=== PATIENT | male | born 1995 | race Caucasian/White ===

== ENCOUNTER 2017-12-12 15:26 | Emergency (ER) | payer BC ==
[~2017-12-12 15:26] MED LIST: OXYC-865 PO; PROM-110 PO
--- NOTE | 2017-12-12 15:29 | ER Report ---
History and Physical Time Seen By MD: 15:29 HPI/ROS CHIEF COMPLAINT: sob HISTORY OF PRESENT ILLNESS: Pt states that it is hard for him to take a deep breath "i feel like the air only goes 1/[address] way in". 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 no cough. no fever or chills. no sorethroat. no runny nose. Pt denies any hx of asthma. Pt denies being a smoker. States he at times feels like it "schwab" to take a deep breath. Came in to be checked. REVIEW OF SYSTEMS: Constitutional: No fever, no chills. Eyes: No discharge. ENT: No sore throat. Cardiovascular: No chest pain, no palpitations. Respiratory: No cough, + shortness of breath. Gastrointestinal: No abdominal pain, no vomiting. Genitourinary: No hematuria. Musculoskeletal: No back pain. Skin: No rashes. Neurological: No headache. Allergies: Coded Allergies: cephalexin (Verified Allergy, Intermediate, hives, 11/13/16) Home Meds Active Scripts Promethazine Hcl (PROMETHAZINE HCL) 25 Mg Tablet, 25 MG PO Q4H PRN for NAUSEA/VOMITING, #10 TAB Prov:IAN LIN DO 11/13/16 Oxycodone Hcl/Acetaminophen (PERCOCET 5-325 MG TABLET) 1 Each Tablet, 1 EACH PO Q4H PRN for PAIN, #10 TAB Prov:IAN LIN DO 11/13/16 Past Medical/Surgical History pmhx: denies Hx Smoking: No Hx Substance Use Disorder: No Hx Alcohol Use: Yes Constitutional Vital Sign - Last 24 Hours 12/12/17 12/12/17 12/12/17 12/12/17 15:26 15:30 15:31 15:41 Temp 98.2 Pulse ??? 80 76 Resp 18 10 B/P (MAP) 130/79 130/79 (96) Pulse Ox 100 98 O2 Delivery Room Air 12/12/17 12/12/17 12/12/17 12/12/17 15:56 16:00 16:11 16:17 Pulse 88 94 80 Resp 18 0 14 B/P (MAP) 117/88 (98) Pulse Ox 98 92 12/12/17 12/12/17 12/12/17 12/12/17 16:26 16:30 16:41 16:56 Pulse 75 78 75 Resp 10 34 13 B/P (MAP) 119/72 (88) Pulse Ox 94 99 79 12/12/17 12/12/17 17:00 17:11 Pulse 70 Resp 21 B/P (MAP) 123/71 (88) Pulse Ox 96 Physical Exam General Appearance: The patient is alert, has no immediate need for airway protection and no signs of toxicity. Eyes: Pupils equal and round no pallor or injection, EOMI ENT: no pharyngeal erythema or exudates, + large tonsils, Mucous membranes are moist, TM are nl b/l Respiratory: There are no retractions, lungs decreased more on right then left Cardiovascular: Regular rate and rhythm. pulses are equal and symmetrical Gastrointestinal: Abdomen is soft and non tender, no masses, bowel sounds normal, no guarding, no rigidity or rebound Neurological: Cranial nerves II-XII grossly intact, no sensory or motor loss Skin: Warm and dry, no rashes. Musculoskeletal: Neck is supple non tender, no vertebral tenderness Extremities are nontender, non swollen and have full range of motion, no calf swelling DIFFERENTIAL DIAGNOSIS: After history and physical exam differential diagnosis was considered for asthma, rad, ptx Medical Decision Making Data Points Result Diagram: 12/12/17 1640 12/12/17 1640 Laboratory Hematology Test 12/12/17 16:40 Red Blood Count 6.12 M/uL (4.00-5.60) Mean Corpuscular Volume 84.5 fL (80.0-96.0) Mean Corpuscular Hemoglobin 29.4 pg (26.0-33.0) Mean Corpuscular Hemoglobin Concent 34.7 g/dL (32.0-36.0) Red Cell Distribution Width 13.1 % (11.5-14.5) Mean Platelet Volume 8.6 fL (7.2-11.1) Neutrophils (%) (Auto) 63.5 % (39.4-72.5) Lymphocytes (%) (Auto) 28.5 % (17.6-49.6) Monocytes (%) (Auto) 7.0 % (4.1-12.4) Eosinophils (%) (Auto) 0.5 % (0.4-6.7) Basophils (%) (Auto) 0.5 % (0.3-1.4) Nucleated RBC Relative Count (auto) 0.0 /100WBC Neutrophils # (Auto) 5.9 K/uL (2.0-7.4) Lymphocytes # (Auto) 2.6 K/uL (1.3-3.6) Monocytes # (Auto) 0.7 K/uL (0.3-1.0) Eosinophils # (Auto) 0.0 K/uL (0.0-0.5) Basophils # (Auto) 0.0 K/uL (0.0-0.1) Nucleated RBC Absolute Count (auto) 0.00 K/uL D-Dimer Quantitative (PE/DVT) < 0.27 ug/ml (0-0.50) Sodium Level 140 mmol/L (137-145) Potassium Level 3.4 mmol/L (3.5-5.0) Chloride Level 102 mmol/L (98-107) Carbon Dioxide Level 24 mmol/L (22-30) Blood Urea Nitrogen 21 mg/dl (9-21) Creatinine 1.20 mg/dl (0.66-1.25) Glomerular Filtration Rate Calc > 60.0 Random Glucose 97 mg/dl (75-110) Calcium Level 10.1 mg/dl (8.4-10.2) Chemistry Test 12/12/17 16:40 White Blood Count 9.2 k/uL (4.5-11.0) Red Blood Count 6.12 M/uL (4.00-5.60) Hemoglobin 18.0 g/dL (14.0-18.0) Hematocrit 51.7 % (42.0-52.0) Mean Corpuscular Volume 84.5 fL (80.0-96.0) Mean Corpuscular Hemoglobin 29.4 pg (26.0-33.0) Mean Corpuscular Hemoglobin Concent 34.7 g/dL (32.0-36.0) Red Cell Distribution Width 13.1 % (11.5-14.5) Platelet Count 203 K/uL (150-450) Mean Platelet Volume 8.6 fL (7.2-11.1) Neutrophils (%) (Auto) 63.5 % (39.4-72.5) Lymphocytes (%) (Auto) 28.5 % (17.6-49.6) Monocytes (%) (Auto) 7.0 % (4.1-12.4) Eosinophils (%) (Auto) 0.5 % (0.4-6.7) Basophils (%) (Auto) 0.5 % (0.3-1.4) Nucleated RBC Relative Count (auto) 0.0 /100WBC Neutrophils # (Auto) 5.9 K/uL (2.0-7.4) Lymphocytes # (Auto) 2.6 K/uL (1.3-3.6) Monocytes # (Auto) 0.7 K/uL (0.3-1.0) Eosinophils # (Auto) 0.0 K/uL (0.0-0.5) Basophils # (Auto) 0.0 K/uL (0.0-0.1) Nucleated RBC Absolute Count (auto) 0.00 K/uL D-Dimer Quantitative (PE/DVT) < 0.27 ug/ml (0-0.50) Glomerular Filtration Rate Calc > 60.0 Calcium Level 10.1 mg/dl (8.4-10.2) Coagulation Test 12/12/17 16:40 D-Dimer Quantitative (PE/DVT) < 0.27 ug/ml EKG/Imaging Imaging napd ED Course/Re-evaluation Clinical Indication for ER IV: IV Access ED Course obtain cxr and give breathing treatment if no obvious ptx is noted. 12/12/2017 4:33:34 pm no ptx or infection evident on xray. pt felt little dif ference after the treatment. Will try decadron and obtain labs. 12/12/2017 5:45:44 pm Pt blood work neg. Perc score and neg d-dimer low risk of Pe. not anemic. pt did not want albutreol inhaler since felt it did not help. Not sure if decadron is helping. Told him to follow up with pcp. If decadron helps he may need steriod inhaler. Pt is also instructed to try allergy medications otc Decision to Disposition Date: Dec 12, 2017 Decision to Disposition Time: 17:47 Depart Departure Latest Vital Signs Vital Signs Date Time Temp Pulse Resp B/P (MAP) Pulse Ox O2 Delivery O2 Flow Rate FiO2 12/12/17 17:11 70 21 96 12/12/17 17:00 123/71 (88) 12/12/17 15:30 98.2 Room Air Impression: Primary Impression: Dyspnea Condition: Improved Disposition: HOME OR SELF-CARE Referrals: EDITH MERCADO MD (PCP) 5 Days Patient Instructions: Dyspnea (ED) Additional Instructions: Your xray does not show pneumonia. Your blood work does not show anemia or blood clot to suggest reason for your shortness of breath. Follow up with your family doctor. We did give you steriods in the Emergency room in case it is allergy based. You may want to try over the counter allergy medication such as zyrtec or nicola tin daily to see if that helps. Return if symptoms worsen prior to seeing your doctor. Problem Qualifiers Primary Impression: Dyspnea Dyspnea type: dyspnea on exertion Qualified Codes: R06.09 - Other forms of dyspnea SHANELL GAMBLE DO Dec 12, 2017 15:29
[2017-12-12] MEDS ORDERED: ALBUTEROL/IPRATROPIUM 3 ML NEB NEB ONE (15:55)
[2017-12-12] MEDS ORDERED: DEXAMETHASONE 4 MG TAB PO ONE (15:55)
--- NOTE | 2017-12-12 16:01 | RADIOLOGY IMAGING REPORT ---
FACILITY: [facility] [place] PATIENT NAME: Solo Rehman : 1995 MR: [id number] V: [id number] EXAM DATE: ORDERING PHYSICIAN: SHANELL GAMBLE TECHNOLOGIST: [place] [facility] [place] Re[place] : 1995 Visit/Account:[id number] Date of Sevice: 12/12/2017 2 VIEWS CHEST INDICATION: Shortness of breath COMPARISON: None available FINDINGS: Heart size within normal limits. No focal infiltrate, consolidation, effusion or pneumothorax. No acute bony finding IMPRESSION: 1. No acute cardiopulmonary process. Report Dictated By: Mario Boateng MD at 12/12/2017 3:55 PM Report E-Signed By: Mario Boateng MD at 12/12/2017 3:55 PM WSN:[id number]
[2017-12-12 16:56] LABS: PLATELET COUNT, AUTOMATED 203 K/uL (150-450)
[2017-12-12 17:30] VITALS: BP 117/75
== END 2017-12-12 18:06 | disposition home or self-care (01) ==
LOC: ER 15:39
DX: R06.02 Shortness of breath (principal)
CPT/HCPCS: 71046; 85025; 85379; 94640; 99283; J7620; J8540; 82310; 82374; 82435; 82565; 82947; 84132; 84295; 84520